=== PATIENT | male | born 1940 | race Caucasian/White ===

== ENCOUNTER 2019-11-14 07:04 | Day surgery (SDC) | payer MEDICARE, SELFPAY | END 2019-11-14 12:47 | disposition home or self-care (01) | PROVIDERS: Family Provider Family Medicine; Visit Provider Specialist | DX: H65.493 Other chronic nonsuppurative otitis media, bilateral (principal); Z87.891 Personal history of nicotine dependence; J44.9 Chronic obstructive pulmonary disease, unspecified; I25.10 Atherosclerotic heart disease of native coronary artery without angina pectoris; I10 Essential (primary) hypertension; K21.9 Gastro-esophageal reflux disease without esophagitis; M19.90 Unspecified osteoarthritis, unspecified site; E78.5 Hyperlipidemia, unspecified; N40.0 Benign prostatic hyperplasia without lower urinary tract symptoms | CPT/HCPCS: 69436; J0171; J1100; J2001; J2405; J2704; J3010; J3490 ==